=== PATIENT | male | born 1960 | race Caucasian/White ===

== ENCOUNTER 2016-09-01 20:28 | Inpatient (IN) ==
[2016-09-01] MEDS ORDERED: Ondansetron 4 MG/2 ML VIAL IVP ONE ×2 (21:11→23:39)
[2016-09-01] MEDS ORDERED: 0.9 % Sodium Chloride 1,000 ML IVC ONE (21:11)
[2016-09-01] MEDS ORDERED: *HR* HYDROmorphone (PF) 1 MG/ML SYRINGE IVP ONE ×2 (21:11→23:39)
--- NOTE | 2016-09-01 21:18 | Emergency Department Note ---
Disposition Clinical Impression: Acute gastroenteritis, Intractable epigastric abdominal pain Leukocytosis Qualifiers: Leukocytosis type: unspecified Qualified Code(s): D72.829 - Elevated white blood cell count, unspecified Disposition: Admitted As Inpatient Condition: Fair Forms: ED Satisfaction Letter Time of Disposition: 00:35 Abdominal Pain HPI - General Chief Complaint: ED Abdominal Pain Stated Complaint: abd pain, n/v Time Seen by Provider: 09/01/16 20:50 Source: patient, family, EMS Nursing Notes Reviewed: Yes Vital Signs Reviewed: Yes - History of Present Illness HPI Narrative: 55-year-old male transferred here from the [facility] urgent care for evaluation of epigastric abdominal pain which started about 3 PM today. Patient states the pain is constant but comes in waves. When he gets severe he rates the pain a 10 out of 10 and he develops nausea and vomiting and diaphoresis with the pain. At present the pain as a 6 out of 10. He also has developed some diarrhea since the pain started. No fever. No chest pain or shortness of breath. There is been no melena, hematemesis, or hematochezia. No urinary symptoms. No flank pain. Patient has history of a ruptured appendix and ventral hernia repair. He also has a past history of varices but no history of cirrhosis or liver problems. Also past history of surgery for a bleeding gastric ulcer. reports that for about the past month every time the patient eats he was some upper abdominal pain and nausea and get diaphoretic. He does still have his gallbladder. Pt Subjective Complaint: abdominal pain Onset (ago): hour(s) (5) Consistency: constant, Worsening Location: epigastric Pain Severity: severe Pain Scale: 6 Quality: cramping, stabbing, sharp Radiation: none Migration to: no migration Improves with: nothing Worsens with: nothing Associated symptoms: Reports: nausea, vomiting, diarrhea. Denies: fever, chills , constipation, dysuria, hematemesis, hematochezia, melena, hematuria, anorexia , syncope Treatments prior to arrival: other (Patient received nausea medicine at the [facility].) - Related Data Allergies Allergy/AdvReac Type Severity Reaction Status Date / Time morphine AdvReac See Verified 09/01/16 20:31 Comments All systems ED: reviewed and negative except as stated. Constitutional: Denies: fever, chills, weakness Eyes: Denies: eye pain, eye discharge, vision change ENT ED: Denies: ear pain, throat pain Cardiovascular: Denies: chest pain, palpitations, dyspnea on exertion, edema, syncope Respiratory: Denies: cough, dyspnea, wheezes, hemoptysis, stridor, sputum production Gastrointestinal: Reports: abdominal pain, nausea, vomiting, diarrhea. Denies: constipation, hematemesis, melena, hematochezia Genitourinary: Denies: urgency, dysuria, frequency, hematuria Musculoskeletal: Denies: back pain, neck pain Integumentary: Denies: rash, lesions Neurological: Denies: headache, weakness, numbness, paresthesias Psychiatric: Denies: anxiety, depression Endocrine: Denies: fatigue Hematological/Lymphatic: Denies: easy bleeding, easy bruising, lymphadenopathy Allergic/Immunologic: Denies: facial swelling, urticaria, itchy eyes Abdominal Pain PMH - Past Medical History Medical history: Reports: non-contributory Male Surgical History: Reports: appendectomy Psychiatric history: Reports: anxiety - Social History Smoking status: Current every day smoker Alcohol use: Reports: occasionally Drug use: Reports: none Physical Exam - General Limitations: no limitations General appearance: alert, in no apparent distress - Head Head exam: atraumatic, normocephalic, normal inspection - Eye Eye exam: Present: normal appearance, PERRL, EOMI. Absent: scleral icterus, conjunctival injection - ENT ENT exam: normal exam, normal oropharynx, mucous membranes moist, TM's normal bilaterally, normal external ear exam - Neck Neck exam: Present: normal inspection, full ROM, trachea midline. Absent: tenderness, meningismus, lymphadenopathy - Chest Chest inspection: Present: normal inspection, symmetric chest wall rise. Absent : tenderness - Respiratory Respiratory exam: Present: normal lung sounds bilaterally. Absent: respiratory distress, wheezes, stridor, accessory muscle use - Cardiovascular Cardiovascular exam: Present: regular rate, normal rhythm, normal heart sounds - Abdominal Exam Abdominal exam: Present: soft, tenderness (Moderate epigastric tenderness worse on the right side.), normal bowel sounds. Absent: distention, guarding, rebound , rigidity Abdominal tenderness: Present: epigastrium, moderate - Extremities Exam Extremities exam: Present: normal inspection, full ROM. Absent: tenderness, pedal edema - Back Exam Back exam: Present: normal inspection. Absent: CVA tenderness (R), CVA tenderness (L) - Neurological Exam Neurological exam: Present: alert, oriented X3. Absent: motor sensory deficit - Psychiatric Psychiatric exam: Present: normal affect, normal mood - Skin Skin exam: Present: warm, dry, intact, normal color. Absent: cyanosis, diaphoresis Course Course Narrative: 55-year-old male presents from the [facility] with several hours of epigastric abdominal pain associated with nausea vomiting diarrhea. Abdominal pain workup initiated. IV fluids and pain medications. We will CT his abdomen. - Reevaluation(s) Reevaluation #1: Patient reevaluated. He is still complaining of a lot of epigastric abdominal pain and nausea. He is hypertensive and tachycardic. He has had 2 doses of Zofran and Dilaudid. Nothing acute on CT scan. WBC 23. We will consult the hospitalist for admission for acute gastroenteritis and intractable abdominal pain and leukocytosis. Time: 00:00 - Consultations Consultation #1: Consulted the hospitalist, Dr. Basilio. Dr. Basilio accepted admission to the [facility] floor. Time: 00:20 Vital Signs Temperature 97.7 F 09/01/16 20:31 Pulse Rate 99 09/01/16 20:31 Respiratory Rate 18 09/01/16 20:31 Blood Pressure 178/110 09/01/16 20:31 O2 Sat by Pulse Oximetry 97 09/01/16 20:31 Temperature 97.7 F 09/01/16 20:31 Pulse Rate 103 09/01/16 23:59 Respiratory Rate 16 09/01/16 23:59 Blood Pressure 158/107 09/01/16 23:59 O2 Sat by Pulse Oximetry 97 09/01/16 23:59 Oxygen Delivery Oxygen Delivery Room Air Abdominal Pain - MDM Narrative Medical decision making narrative: 55-year-old male presents from the [facility] with several hours of epigastric abdominal pain associated with nausea vomiting diarrhea. Abdominal pain workup initiated. IV fluids and pain medications. We will CT his abdomen. - Lab Data Lab results reviewed: Yes I reviewed the patient's lab results. Result diagrams: 09/01/16 21:30 09/01/16 21:30 Lab Results 09/01/16 09/01/16 09/01/16 Range/Units 21:30 21:30 21:30 WBC 23.6 H (4.3-11.1) K/mcL RBC 5.40 (4.19-5.50) M/mcL Hgb 16.6 (12.9-16.9) g/dL Hct 49.6 (37.5-50.1) % MCV 91.9 (83.0-100.0) fL MCH 30.7 (28.0-33.3) pg MCHC 33.5 (31.6-35.5) g/dL RDW 12.6 (11.5-14.5) % Plt Count 305 (140-400) K/mcL MPV 8.6 L (9.4-12.4) fL Immature Gran % 0.8 (0-4) % Seg Neutrophils % 91.4 % Lymphocytes % 3.2 % Monocytes % 3.9 % Eosinophils % 0.5 % Basophils % 0.2 % Neutrophils # 21.6 H (1.6-8.9) K/mcL Lymphocytes # 0.8 (0.6-4.6) K/mcL Monocytes # 0.9 (0.0-1.3) K/mcL Eosinophils # 0.1 (0.0-0.6) K/mcL Basophils # 0.1 (0.0-0.2) K/mcL Platelet Estimate Normal (Normal) PT 10.9 (9.4-12.1) Seconds INR 1.0 APTT 31.0 (26.0-36.0) Seconds Sodium 139 (136-145) mEq/L Potassium 4.8 H (3.5-4.5) mEq/L Chloride 106 (98-109) mEq/L Carbon Dioxide 24 (19-29) mEq/L BUN 16 (8-26) mg/dL Creatinine 0.95 (0.72-1.25) mg/dL Est GFR ( Amer) > 60 (> 60) Est GFR (Non-Af Amer) > 60 (> 60) BUN/Creatinine Ratio 17 (6-26) Glucose 129 H (70-99) mg/dL Calculated Osmolality 291 (280-300) Lactic Acid (0.5-2.2) mmol/L Calcium 9.5 (8.6-10.8) mg/dL Total Bilirubin 0.4 (0.2-1.2) mg/dL Direct Bilirubin 0.1 (0.0-0.5) mg/dL Indirect Bilirubin 0.3 (0.0-1.2) mg/dL AST 17 (5-34) Units/L ALT 28 (0-55) Units/L Alkaline Phosphatase 85 (38-126) Units/L Troponin I (0-0.03) ng/mL Serum Total Protein 7.7 (6.0-8.3) g/dL Albumin 3.9 (3.5-5.0) g/dL Globulin 3.8 H (2.4-3.5) g/dL Albumin/Globulin Ratio 1.0 L (1.1-2.2) Amylase 70 (25-125) Units/L Lipase 15 (8-78) Units/L Urine Color (Yellow) Urine Clarity (Clear) Urine pH (5.0-8.0) pH Units Ur Specific [place] (1.010-1.025) Urine Protein (Neg-Trace) mg/dL Urine Glucose (UA) (Normal) mg/dL Urine Ketones (Negative) mg/dL Urine Blood (Negative) Urine Nitrite (Negative) Urine Bilirubin (Negative) Urine Urobilinogen (Normal) mg/dL Ur Leukocyte Esterase (Negative) Ur Culture Indicated? (NO) 09/01/16 09/01/16 09/01/16 Range/Units 21:30 21:30 23:12 WBC (4.3-11.1) K/mcL RBC (4.19-5.50) M/mcL Hgb (12.9-16.9) g/dL Hct (37.5-50.1) % MCV (83.0-100.0) fL MCH (28.0-33.3) pg MCHC (31.6-35.5) g/dL RDW (11.5-14.5) % Plt Count (140-400) K/mcL MPV (9.4-12.4) fL Immature Gran % (0-4) % Seg Neutrophils % % Lymphocytes % % Monocytes % % Eosinophils % % Basophils % % Neutrophils # (1.6-8.9) K/mcL Lymphocytes # (0.6-4.6) K/mcL Monocytes # (0.0-1.3) K/mcL Eosinophils # (0.0-0.6) K/mcL Basophils # (0.0-0.2) K/mcL Platelet Estimate (Normal) PT (9.4-12.1) Seconds INR APTT (26.0-36.0) Seconds Sodium (136-145) mEq/L Potassium (3.5-4.5) mEq/L Chloride (98-109) mEq/L Carbon Dioxide (19-29) mEq/L BUN (8-26) mg/dL Creatinine (0.72-1.25) mg/dL Est GFR ( Amer) (> 60) Est GFR (Non-Af Amer) (> 60) BUN/Creatinine Ratio (6-26) Glucose (70-99) mg/dL Calculated Osmolality (280-300) Lactic Acid 1.5 (0.5-2.2) mmol/L Calcium (8.6-10.8) mg/dL Total Bilirubin (0.2-1.2) mg/dL Direct Bilirubin (0.0-0.5) mg/dL Indirect Bilirubin (0.0-1.2) mg/dL AST (5-34) Units/L ALT (0-55) Units/L Alkaline Phosphatase (38-126) Units/L Troponin I 0.00 (0-0.03) ng/mL Serum Total Protein (6.0-8.3) g/dL Albumin (3.5-5.0) g/dL Globulin (2.4-3.5) g/dL Albumin/Globulin Ratio (1.1-2.2) Amylase (25-125) Units/L Lipase (8-78) Units/L Urine Color Yellow (Yellow) Urine Clarity Clear (Clear) Urine pH 6.5 (5.0-8.0) pH Units Ur Specific [place] 1.026 H (1.010-1.025) Urine Protein Negative (Neg-Trace) mg/dL Urine Glucose (UA) Normal (Normal) mg/dL Urine Ketones Negative (Negative) mg/dL Urine Blood Negative (Negative) Urine Nitrite Negative (Negative) Urine Bilirubin Negative (Negative) Urine Urobilinogen Normal (Normal) mg/dL Ur Leukocyte Esterase Negative (Negative) Ur Culture Indicated? NO (NO) - Radiology Data Radiology results reviewed: Yes I reviewed the patient's radiology results. Abdomen/Pelvis CT 09/01/16 22:27 IMPRESSION: 1. No acute findings identified in the abdomen and pelvis. D/ / Bandar Jeronimo MD / Bandar Jeronimo MD Interpreting Provider: Bandar Jeronimo MD - EKG Data EKG attestation: Yes I reviewed and interpreted this EKG. EKG shows normal: sinus rhythm Rate: normal Rhythm: NSR Interpretation: no acute changes
[2016-09-01 21:36] LABS: Basophils # 0.1 K/mcL (0.0-0.2); Basophils % 0.2 %; Eosinophils # 0.1 K/mcL (0.0-0.6); Eosinophils % 0.5 %; Hematocrit 49.6 % (37.5-50.1); Hemoglobin 16.6 g/dL (12.9-16.9); Immature Granulocytes % 0.8 % (0-4); Lymphocytes # 0.8 K/mcL (0.6-4.6); Lymphocytes % 3.2 %; Mean Corpuscular HGB Conc 33.5 g/dL (31.6-35.5); Mean Corpuscular Hemoglobin 30.7 pg (28.0-33.3); Mean Corpuscular Volume 91.9 fL (83.0-100.0); Mean Platelet Volume 8.6 fL (9.4-12.4); Monocytes # 0.9 K/mcL (0.0-1.3); Monocytes % 3.9 %; Neutrophils # 21.6 K/mcL (1.6-8.9); Platelet Count 305 K/mcL (140-400); Red Cell Distribution Width 12.6 % (11.5-14.5); Segmented Neutrophils % 91.4 %
[2016-09-01 21:42] LABS: Prothrombin Time 10.9 Seconds (9.4-12.1)
[2016-09-01 21:52] LABS: Alanine Aminotransferase 28 Units/L (0-55); Albumin 3.9 g/dL (3.5-5.0); Alkaline Phosphatase 85 Units/L (38-126); Amylase 70 Units/L (25-125); Aspartate Amino Transferase 17 Units/L (5-34); BUN/Creatinine Ratio 17 (6-26); Bilirubin,Direct 0.1 mg/dL (0.0-0.5); Bilirubin,Indirect 0.3 mg/dL (0.0-1.2); Bilirubin,Total 0.4 mg/dL (0.2-1.2); Blood Urea Nitrogen 16 mg/dL (8-26); Calcium 9.5 mg/dL (8.6-10.8); Carbon Dioxide 24 mEq/L (19-29); Chloride 106 mEq/L (98-109); Globulin 3.8 g/dL (2.4-3.5); Glucose 129 mg/dL (70-99); Lipase 15 Units/L (8-78); Osmolality,Calculated 291 (280-300); Potassium 4.8 mEq/L (3.5-4.5); Sodium 139 mEq/L (136-145); Total Protein 7.7 g/dL (6.0-8.3); eGFR For African Americans > 60 (> 60); eGFR For Non-African Americans > 60 (> 60)
[2016-09-01 22:05] LABS: Platelet Estimate Normal (Normal)
[2016-09-01 23:25] LABS: Bilirubin,Urine Negative (Negative); Blood,Urine Negative (Negative); Clarity,Urine Clear (Clear); Color,Urine Yellow (Yellow); Glucose,Urine (UA) Normal (Normal); Ketones,Urine Negative (Negative); Leukocyte Esterase,Urine Negative (Negative); Nitrite,Urine Negative (Negative); PH,Urine 6.5 pH Units (5.0-8.0); Protein,Urine Negative (Neg-Trace); Specific Gravity,Urine 1.026 (1.010-1.025); Urobilinogen,Urine Normal (Normal)
[2016-09-02] MEDS ORDERED: 0.9 % Sodium Chloride 1,000 ML IVC ONE (02:12)
[2016-09-02] MEDS ORDERED: Naloxone 0.4 MG/ML INJ IVP PRN (02:12)
[2016-09-02] MEDS ORDERED: Benzonatate 100 MG CAPSULE PO PRN (02:12)
[2016-09-02] MEDS ORDERED: Pantoprazole 80 MG in 0.9 % Sodium Chloride 50 ML IVPB STA (02:12)
[2016-09-02] MEDS ORDERED: *HR* Promethazine 25 MG/ML VIAL IVP PRN (02:12)
[2016-09-02] MEDS ORDERED: Acetaminophen 325 MG TABLET PO PRN (02:12)
[2016-09-02] MEDS ORDERED: *HR* HYDROmorphone (PF) 1 MG/ML SYRINGE IVP PRN (02:12)
[2016-09-02] MEDS ORDERED: *HR* OxyCODONE Immed Rel 5 MG TABLET PO PRN (02:12)
--- NOTE | 2016-09-02 02:32 | Internal Med History&Physical ---
Date of Encounter: 09/02/16 Time of Encounter: 02:00 Assessment and Plan (1) Acute generalized abdominal pain Current visit: Yes Status: Acute . (2) Nausea, vomiting, and diarrhea Current visit: Yes Status: Acute . (3) Systemic inflammatory response syndrome (SIRS) Current visit: Yes Status: Acute . (4) Obesity (BMI 30-39.9) Current visit: Yes Status: Chronic . (5) Postprandial epigastric pain Current visit: Yes Status: Acute . (6) Anxiety disorder Current visit: Yes Status: Chronic . Qualifiers: Anxiety disorder type: generalized anxiety disorder Qualified Code(s): F41.1 - Generalized anxiety disorder (7) Nicotine dependence with nicotine-induced disorder Current visit: Yes Status: Chronic . Qualifiers: Nicotine product type: cigarettes Qualified Code(s): F17.219 - Nicotine dependence, cigarettes, with unspecified nicotine-induced disorders (8) Accelerated hypertension Current visit: Yes Status: Acute . (9) Hypertensive urgency Current visit: Yes Status: Acute .. (10) Acute gastroenteritis Current visit: Yes Status: Acute . (11) Intractable epigastric abdominal pain Current visit: Yes Status: Acute . (12) Anxiety about health Current visit: Yes Status: Acute . (13) Anxiety as acute reaction to gross stress Current visit: Yes Status: Acute . Internal Medicine - H&P: HPI Chief complaint: intractable epigastric pain, nausea, vomiting, diarrhea Admitted From: Hospital to Hospital Transfer (Hospital transfer from the [facility] urgent care center to [facility] emergency center) Plans for Post Hospital Care: Home History of present illness: Mr. Choudhary is a 55 year old male [facility] patient with medical history noteworthy for GERD/esophageal stricture/Schatzki's ring, esophageal varices/duodenal ulcers/UGI bleed, irritable bowel syndrome, osteoarthritis, chronic musculoskeletal/low back pain syndrome, diverticulosis coli, hypertension, dyslipidemia, cholelithiasis, BPH/prostatism, generalized anxiety disorder, depression, morbid obesity, nicotine dependency. The patient was visited and interviewed and examined. The patient is admitted to [facility] via the emergency department as a referral from [facility] urgent care center for evaluation of intractable epigastric/abdominal pain beginning approximately 3 PM the day of admission. Patient arrived via EMS services in the company of family. Reports that he has actually had symptoms of pain waxing and waning initially daily for a month. He describes the pain is constant but comes in waves. When most severe he rates it as a 10/10. This is associated with intractable nausea and repetitive vomiting and profuse diaphoresis. At the time of presentation to the ER he rates it as a 5-6/10 severity. Symptoms also include episodes of this stool. He numbers he says 2- 3 per day. They can be postprandial. His abdominal pain nausea and vomiting often is postprandial. No specific foods which are outstanding and causing symptoms. Also present nothing seems to lessen them except vomiting or bowel movement. Focuses most severe pain is epigastric described as cramping stabbing and sharp. He denies any overt chest pain exertional exacerbation of symptoms cecal or presyncopal complaints or respiratory complaints dyspnea at rest cough sputum production. Denies any epistaxis, hemoptysis hematemesis melena bright red blood per rectum. Abdominal pains have awakened him from sleep associated with diaphoresis and nausea. Associated fevers chills with these symptoms. Denies any association with a urinary tract or flank pain. Pain is predominantly epigastric without radiation. The patient has undergone intra-abdominal procedures including ruptured appendix repair large hernia repair. History is significant for gastroesophageal reflux disease associated at times with dysphagia delineated to be secondary to esophageal strictures and Schatzki's ring. His also had upper gastrointestinal bleeding event secondary to duodenal ulcer/gastric ulcer and esophageal varices without associated history of cirrhotic liver disease per patient's report and noted in [facility] record.. Findings in the ED: Temperature 97.7 pulse 99-103 respirations 16-18 BP 158-178/107-110 O2 saturation 97% room air. WBC 23.6 hemoglobin 16.6 platelets 305,000. Differential shows a increase in neutrophils. MPV 8.6. PT 10.9 INR 1 PTT 31. Metabolic panel finds potassium 4.8. Glucose 129 osmolality 291. BUN 16 creatinine 0.95. Hepatic function normal. Amylase 70 lipase 15. Lactic acid 1.5. Troponin 0.00. Urinalysis negative. CT abdomen/ pelvis IV contrast demonstrates no acute intra-abdominal or pelvic findings. Small hiatal hernia. No focal consolidation or pleural effusion of the lower chest. Mild fatty infiltration of the liver. Spleen pancreas adrenal glands within normal limits. Unremarkable gallbladder. No evidence of focal enterocolitis. No bowel obstruction. No free air or fluid within the abdomen. The appendix is not well seen. No inflammatory changes in the right lower quadrant. No acute findings in the pelvis. No evidence of obstructive uropathy. No evidence of aortic aneurysm. Status post ventral hernia repair. No acute findings of bone or soft tissue. Chronic/congenital bilateral L5 pars defects. EKG shows sinus tachycardia (101) pattern consistent with pulmonary disease with low voltage in frontal and precordial leads. Poor R wave progression V1 to V2 V3 and V4 incision. Nonspecific ST-T wave changes. Q- wave in lead 3 and aVF. Left axis deviation. Baseline artifact. Preliminary impressions suggest acute gastroenteritis with nausea vomiting and epigastric pain as well as associated episodic watery diarrhea versus loose semi-formed stool. Patient carries a history of irritable bowel syndrome as well as a history of gastritis- duodenitis. Presentation is significant for this combination of events. The patient acknowledges significant at times overwhelming personal stressors and increased anxiety and worry. Worry about his health especially at this time focuses on his abdomen which is been a prime source of the concern over the years. I will just most family members including his requiring interventions for gallbladder disease is his concern at this time. The episodic nature of symptoms occurring with meals associated with nausea vomiting and profuse diaphoresis is concerning. Enlight of his presentation with accelerated hypertensive urgency rule out for possible ACS/UA given his multiple positive risk factors is warranted. Given the dynamic cardiovascular events and the gastrointestinal symptoms will rule out of endocrinopathies such as pheochromocytoma, carcinoid, insulinoma, evolving diabetes mellitus with episodic acute hypoglycemias, etc., to be considered. Systemic inflammatory response syndrome criteria present at the time of admission. There is no discrete evidence to suggest sepsis or focus of infection at present. COPD exacerbation is noted at exam in long-time smoker. Radiographic and cardiac findings otherwise essentially benign. Given patient' s presenting concerns his clinical findings and his past history he is at risk for further acute clinical decline and morbidity. Workup and treatment will progress comprehensively. Cumulative laboratory and radiographic data base was reviewed, considered and discussed. Pertinent ancillary medical records including [facility], [facility] and [facility] documentation, when available, was reviewed and considered. Given the patient's presenting concerns, past medical history, clinical findings and symptoms, he is admitted at this time will undergo further evaluation and disposition. Orders were written as per the computerized physician border machine operator system.......................................................................... .................... Consultative opinions will be sought as clinical circumstances justify. Initial consultative request has been submitted to gastroenterology. Pain management needs will be addressed. Laboratory and radiographic data base will be updated as appropriate. Studies include: cardiac injury panel, BNP, metabolic and hematologic panel, magnesium, phosphorus, ionized calcium, thyroid panel, lipid profile, A1c, C-peptide, CRP, sedimentation rate, amylase, lipase, random urine metanephrine and catecholamines, random urine 5 HIAA, urinalysis, blood gas, lactic acid, serologies, etc. Precautions: Aspiration, fall, delirium protocol/surveillance initiated. Telemetry with continuous hemodynamic monitoring and pulse oximetry initiated. Empiric antibody coverage: Intravenous Rocephin and azithromycin pending culture data. Special studies: CT abdomen/pelvis, MRCP, HIDA scan , chest x-ray, telemetry, EKG, echocardiogram. Pulmonary toilet: Incentive spirometry, aerosol bronchodilator, mucolytic, antitussive, supplemental oxygen. Corticosteroid therapy. CPAP/BiPAP supplemental oxygen delivery when necessary. Aerosol Mucomyst therapy when necessary. Fluid and electrolyte repletion efforts will proceed. Careful attention to fluid balance and renal recovery will be emphasized. Avoidance of nephrotoxic exposure and adverse drug drug interaction in the setting of impaired renal function will be monitored closely. Acute coronary syndrome protocol/surveillance initiated. DVT and PUD prophylaxis initiated: PPI therapy, intermittent pneumatic cuffs. Subcutaneous heparin/lovenox. Early ambulation will be encouraged. Immunization updates recommended. Influenza and pneumococcal vaccinations as part of ongoing preventative healthcare recommendations strongly recommended. Smoking cessation counseling briefly addressed. Patient accepts nicotine substitution during this admission. Advanced care directive discussion briefly addressed. Patient does not declare any healthcare restrictions at this time. Cardiovascular risk appraisal and cardiovascular risk reduction efforts will be emphasized. Physical and occupational therapy may be consulted to evaluate/assess patient's functional capacity and progress mobility if circumstances justify. Outpatient medication schedules will be reviewed confirmed and facilitated as appropriate. Reconciliation of home treatments including adjustments, substitutions and reintroduction into the treatment regimen will address necessary maintenance therapies for chronic pre-existing medical conditions. Plan of care has been reviewed and discussed in detail with the patient. Questions addressed. Hospital course is dependent on clinical findings, treatment response and potential consultative interventions. Patient is at risk for further acute clinical decline and morbidity due to his presenting chief complaints, clinical findings and comorbidities. Condition is serious. Prognosis is cautiously optimistic. CODE STATUS is full. Past Med Surg Social Fam HX - Past Medical History Source: old records reviewed Medical history: arthritis (Chronic back pain. Jaw pain. The pain. The pain.) , COPD, fibromyalgia (Plantar fasciitis/fibromatosis/foot pain. Knee pain. Wrist and hand pain/ numbness/carpal tunnel dysfunction. Jaw pain/TMJ dysfunction), GERD (Schatzki's ring. Hiatal hernia. Esophageal varices. Gastritis. Gastric ulcer. Esophageal stricture.), GI bleed (Duodenal ulcer with hemorrhage.), hyperlipidemia, hypertension, kidney stones, osteoporosis, renal disease (BPH with prostatism.), other (Irritable bowel syndrome. Diverticulosis coli.) Psychiatric history: anxiety, depression, other - Past Surgical History Surgical History: appendectomy, herniorrhaphy, other (EGD colonoscopy. Ventral hernia repair.) - Social History Smoking Status: Current every day smoker Packs per day: 1/2 to 1 ppd Smokeless Tobacco Status: No Alcohol use: occasionally Drug use: none Occupational status: other Current living situation: With Family Activity Level: Independent ambulation, Mostly sedentary Recent Out of Country Travel Within the Last 8 Weeks: No Exposure or Possible Exposure to Illness During Travel: No Internal Medicine - H&P: Meds Methadone 10 mg PO Q12HR 09/02/16 [History] Allergies morphine Adverse Reaction (Verified 09/01/16 20:31) See Comments states that med is ineffective All Systems PM: A 10-system review of systems was performed and is negative for pertinent findings except as documented above in the HPI. - Constitutional Constitutional: as per HPI, fatigue, malaise, other, no chills, no fever(s), no night sweats - EENT Eyes: as per HPI, no change in vision, no discharge, no pain, no photophobia Ears: as per HPI, no ear discharge, no ear pain, no tinnitus Nose, mouth and throat: as per HPI, no dysphagia, no nasal discharge, no neck pain, no sore throat - Cardiovascular Cardiovascular ROS IM: as per HPI, diaphoresis, dyspnea on exertion, no chest pain, no dyspnea, no lightheadedness, no palpitations, no syncope - Respiratory Respiratory: as per HPI, no cough, no dyspnea, no hemoptysis, no wheezing, no excessive phlegm production - Gastrointestinal Gastrointestinal: as per HPI, abdominal pain, bloating, change in bowel habits, cramping, diarrhea, loose stools, other, no hematemesis, no hematochezia, no melena, no nausea, no vomiting - Genitourinary Genitourinary ROS male: as per HPI, no difficulty urinating, no dysuria, no hematuria - Musculoskeletal Musculoskeletal ROS IM: as per HPI, no numbness, no tingling - Integumentary Integumentary IM: as per HPI, no rash, no unusual bruising - Neurological Neurological ROS: as per HPI, no confusion, no convulsions, no focal weakness, no numbness, no tingling, no tremor(s) - Psychiatric Psychiatric: as per HPI - Endocrine Endocrine IM: as per HPI - Hematologic/Lymphatic Hematologic/Lymphatic: as per HPI, no easy bruising - Allergic/Immunologic Allergic/Immunologic: as per HPI - Constitutional Vitals: Temp Pulse Resp BP Pulse Ox 98.0 F 95 15 138/80 95 09/02/16 01:42 09/02/16 01:42 09/02/16 01:42 09/02/16 01:42 09/02/16 02:02 General appearance: Present: disheveled, mild distress, A&O X 3, morbidly obese , answers questions appropriately - Head Head exam: Present: atraumatic, normocephalic - Eye Eye exam: Present: EOMI, PERRL, conjuntiva pink, sclera anicteric Pupils: Present: normal accommodation, PERRL - ENT ENT exam: Present: mucous membranes moist, normal external ear exam, normal oropharynx - Neck Neck exam general surgery: Present: full ROM, supple, trachea midline. Absent: lymphadenopathy, tenderness, nuchal rigidity - Respiratory Respiratory exam: Present: decreased breath sounds, CTAB. Absent: accessory muscle use, rales, rhonchi, wheezes - Cardiovascular Cardiovascular exam: Present: distant heart sounds, RRR, +S1, +S2, tachycardia. Absent: diastolic murmur, gallop, rubs, systolic murmur - GI/Abdominal GI/Abdominal exam: Present: distended, hyperactive bowel sounds, soft, tenderness, no peritoneal signs. Absent: hernia, mass, rebound - Extremities Exam Extremities exam: Present: full ROM, warm, radial pulses palpable and symetrical. Absent: calf tenderness, cyanotic, pedal edema - Neurological Exam Neurological exam: Present: alert, CN II-XII intact, oriented X3, no focal deficits. Absent: pronater drift, facial droop, speech deficit - Psychiatric Psychiatric exam: Present: anxious, depressed, normal affect - Expanded Psychiatric Exam Focused psych exam: Present: restlessness - Skin Skin exam: Present: dry, intact, warm. Absent: petechiae, rash, urticaria, vesicles Internal Med - H&P Results - Labs CBC & Chem 7: 09/02/16 03:23 09/02/16 03:23 - Impressions Vital Signs Temp Pulse Resp BP Pulse Ox 09/02/16 02:02 95 09/02/16 01:42 98.0 F 95 15 138/80 95 09/02/16 01:21 18 133/65 09/01/16 23:59 103 16 158/107 97 09/01/16 23:01 96 12 151/92 95 09/01/16 21:07 103 16 123/84 95 09/01/16 20:31 97.7 F 99 18 178/110 97 Intake and Output 09/01/16 09/01/16 09/02/16 15:59 23:59 07:59 Other: Weight 97.522 kg 98 kg Patient Weight 09/02/16 23:59 Weight 98 kg Short CBC 09/01/16 Range/Units 21:30 WBC 23.6 H (4.3-11.1) K/mcL Hgb 16.6 (12.9-16.9) g/dL Hct 49.6 (37.5-50.1) % Plt Count 305 (140-400) K/mcL Neutrophils # 21.6 H (1.6-8.9) K/mcL BMP 09/01/16 Range/Units 21:30 Sodium 139 (136-145) mEq/L Potassium 4.8 H (3.5-4.5) mEq/L Chloride 106 (98-109) mEq/L Carbon Dioxide 24 (19-29) mEq/L BUN 16 (8-26) mg/dL Creatinine 0.95 (0.72-1.25) mg/dL Glucose 129 H (70-99) mg/dL Calcium 9.5 (8.6-10.8) mg/dL Cardiac Enzymes 09/01/16 Range/Units 21:30 Troponin I 0.00 (0-0.03) ng/mL Liver Function 09/01/16 Range/Units 21:30 Total Bilirubin 0.4 (0.2-1.2) mg/dL Direct Bilirubin 0.1 (0.0-0.5) mg/dL AST 17 (5-34) Units/L ALT 28 (0-55) Units/L Alkaline Phosphatase 85 (38-126) Units/L Albumin 3.9 (3.5-5.0) g/dL Urine 09/01/16 Range/Units 23:12 Urine Color Yellow (Yellow) Urine Clarity Clear (Clear) Urine pH 6.5 (5.0-8.0) pH Units Ur Specific [place] 1.026 H (1.010-1.025) Urine Protein Negative (Neg-Trace) mg/dL Urine Glucose (UA) Normal (Normal) mg/dL Abnormal lab results WBC 23.6 K/mcL (4.3-11.1) H 09/01/16 21:30 MPV 8.6 fL (9.4-12.4) L 09/01/16 21:30 Neutrophils # 21.6 K/mcL (1.6-8.9) H 09/01/16 21:30 Potassium 4.8 mEq/L (3.5-4.5) H 09/01/16 21:30 Glucose 129 mg/dL (70-99) H 09/01/16 21:30 Globulin 3.8 g/dL (2.4-3.5) H 09/01/16 21:30 Albumin/Globulin Ratio 1.0 (1.1-2.2) L 09/01/16 21:30 Ur Specific [place] 1.026 (1.010-1.025) H 09/01/16 23:12 Allergies Allergy/AdvReac Type Severity Reaction Status Date / Time morphine AdvReac See Verified 09/01/16 20:31 Comments Laboratory Results WBC 23.6 K/mcL (4.3-11.1) H 09/01/16 21:30 RBC 5.40 M/mcL (4.19-5.50) 09/01/16 21:30 Hgb 16.6 g/dL (12.9-16.9) 09/01/16 21:30 Hct 49.6 % (37.5-50.1) 09/01/16 21:30 MCV 91.9 fL (83.0-100.0) 09/01/16 21:30 MCH 30.7 pg (28.0-33.3) 09/01/16 21:30 MCHC 33.5 g/dL (31.6-35.5) 09/01/16 21:30 RDW 12.6 % (11.5-14.5) 09/01/16 21:30 Plt Count 305 K/mcL (140-400) 09/01/16 21:30 MPV 8.6 fL (9.4-12.4) L 09/01/16 21:30 Immature Gran % 0.8 % (0-4) 09/01/16 21:30 Seg Neutrophils % 91.4 % 09/01/16 21:30 Lymphocytes % 3.2 % 09/01/16 21:30 Monocytes % 3.9 % 09/01/16 21:30 Eosinophils % 0.5 % 09/01/16 21:30 Basophils % 0.2 % 09/01/16 21:30 Neutrophils # 21.6 K/mcL (1.6-8.9) H 09/01/16 21:30 Lymphocytes # 0.8 K/mcL (0.6-4.6) 09/01/16 21:30 Monocytes # 0.9 K/mcL (0.0-1.3) 09/01/16 21:30 Eosinophils # 0.1 K/mcL (0.0-0.6) 09/01/16 21:30 Basophils # 0.1 K/mcL (0.0-0.2) 09/01/16 21:30 Platelet Estimate Normal (Normal) 09/01/16 21:30 PT 10.9 Seconds (9.4-12.1) 09/01/16 21:30 INR 1.0 09/01/16 21:30 APTT 31.0 Seconds (26.0-36.0) 09/01/16 21:30 Sodium 139 mEq/L (136-145) 09/01/16 21:30 Potassium 4.8 mEq/L (3.5-4.5) H 09/01/16 21:30 Chloride 106 mEq/L (98-109) 09/01/16 21:30 Carbon Dioxide 24 mEq/L (19-29) 09/01/16 21:30 BUN 16 mg/dL (8-26) 09/01/16 21:30 Creatinine 0.95 mg/dL (0.72-1.25) 09/01/16 21:30 Est GFR ( Amer) > 60 (> 60) 09/01/16 21:30 Est GFR (Non-Af Amer) > 60 (> 60) 09/01/16 21:30 BUN/Creatinine Ratio 17 (6-26) 09/01/16 21:30 Glucose 129 mg/dL (70-99) H 09/01/16 21:30 Calculated Osmolality 291 (280-300) 09/01/16 21:30 Lactic Acid 1.5 mmol/L (0.5-2.2) 09/01/16 21:30 Calcium 9.5 mg/dL (8.6-10.8) 09/01/16 21:30 Total Bilirubin 0.4 mg/dL (0.2-1.2) 09/01/16 21:30 Direct Bilirubin 0.1 mg/dL (0.0-0.5) 09/01/16 21:30 Indirect Bilirubin 0.3 mg/dL (0.0-1.2) 09/01/16 21:30 AST 17 Units/L (5-34) 09/01/16 21:30 ALT 28 Units/L (0-55) 09/01/16 21:30 Alkaline Phosphatase 85 Units/L (38-126) 09/01/16 21:30 Troponin I 0.00 ng/mL (0-0.03) 09/01/16 21:30 Serum Total Protein 7.7 g/dL (6.0-8.3) 09/01/16 21:30 Albumin 3.9 g/dL (3.5-5.0) 09/01/16 21:30 Globulin 3.8 g/dL (2.4-3.5) H 09/01/16 21:30 Albumin/Globulin Ratio 1.0 (1.1-2.2) L 09/01/16 21:30 Amylase 70 Units/L (25-125) 09/01/16 21:30 Lipase 15 Units/L (8-78) 09/01/16 21:30 Urine Color Yellow (Yellow) 09/01/16 23:12 Urine Clarity Clear (Clear) 09/01/16 23:12 Urine pH 6.5 pH Units (5.0-8.0) 09/01/16 23:12 Ur Specific [place] 1.026 (1.010-1.025) H 09/01/16 23:12 Urine Protein Negative mg/dL (Neg-Trace) 09/01/16 23:12 Urine Glucose (UA) Normal mg/dL (Normal) 09/01/16 23:12 Urine Ketones Negative mg/dL (Negative) 09/01/16 23:12 Urine Blood Negative (Negative) 09/01/16 23:12 Urine Nitrite Negative (Negative) 09/01/16 23:12 Urine Bilirubin Negative (Negative) 09/01/16 23:12 Urine Urobilinogen Normal mg/dL (Normal) 09/01/16 23:12 Ur Leukocyte Esterase Negative (Negative) 09/01/16 23:12 Ur Culture Indicated? NO (NO) 09/01/16 23:12 Impressions Abdomen/Pelvis CT 09/01/16 22:27 IMPRESSION: 1. No acute findings identified in the abdomen and pelvis. D/ / Bandar Jeronimo MD / Bandar Jeronimo MD Interpreting Provider: Bandar Jeronimo MD
[2016-09-02] MEDS ORDERED: *HR* LORazepam 2 MG/ML VIAL IVP ONE (03:00)
[2016-09-02] MEDS ORDERED: diazePAM 5 MG TABLET PO PRN (03:01)
[2016-09-02 04:17] LABS: Hematocrit 47.3 % (37.5-50.1); Hemoglobin 16.1 g/dL (12.9-16.9); Mean Corpuscular Hemoglobin 31.4 pg (28.0-33.3); Mean Corpuscular Volume 92.2 fL (83.0-100.0); Mean Platelet Volume 9.2 fL (9.4-12.4); Platelet Count 304 K/mcL (140-400); Red Blood Count 5.13 M/mcL (4.19-5.50); Red Cell Distribution Width 12.6 % (11.5-14.5)
[2016-09-02 04:24] LABS: Hemoglobin A1C 5.7 %
[2016-09-02 04:31] LABS: Amylase 59 Units/L (25-125); BUN/Creatinine Ratio 16 (6-26); Blood Urea Nitrogen 16 mg/dL (8-26); Calcium 9.1 mg/dL (8.6-10.8); Carbon Dioxide 25 mEq/L (19-29); Chloride 105 mEq/L (98-109); Chol/HDL Ratio 4.9 (0-4.9); Cholesterol 267 mg/dL (< 200); Glucose 142 mg/dL (70-99); HDL Cholesterol 55 mg/dL (40-59); LDL Cholesterol,Calculated 184 mg/dL (0-99); Osmolality,Calculated 288 (280-300); Phosphorous 3.1 mg/dL (2.3-4.7); Potassium 4.1 mEq/L (3.5-4.5); Sodium 137 mEq/L (136-145); Triglycerides 140 mg/dL (< 150); eGFR For African Americans > 60 (> 60); eGFR For Non-African Americans > 60 (> 60)
[2016-09-02] MEDS: Pantoprazole 40 MG in 0.9 % Sodium Chloride Mini Bag 100 ML IVC SCH ×3 (04:39→18:46)
[2016-09-02] MEDS: 0.9 % Sodium Chloride 1,000 ML IVC SCH ×2 (04:40→19:51)
[2016-09-02 04:51] LABS: Thyroid Stimulating Hormone 0.808 mcIU/mL (0.350-4.840)
[2016-09-02] MEDS: *HR* Methadone 10 MG TABLET PO SCH ×2 (05:00→18:05)
[2016-09-02] MEDS ORDERED: Albuterol 2.5 MG/3 ML NEBULIZER IH PRN (05:34)
[2016-09-02] MEDS: Azithromycin 500 MG in D5% in Water 250 ML IVPB SCH (06:40)
[2016-09-02] MEDS ORDERED: Ondansetron 4 MG/2 ML VIAL IVP PRN (07:57)
[2016-09-02] MEDS ORDERED: MetroNIDAZOLE 500 MG/100 ML 500 MG/100 ML BAG IVPB SCH (08:00)
--- NOTE | 2016-09-02 09:08 | ECHO - Doppler Report ---
Echocardiogram Name: Leandro Choudhary Date of Study: 09/02/2016 Date: 1960 Ht: 69.0 in Medical Record#: [id number] Age: 55 Wt: 214.0 lb Gender: Male BSA: 2.13 Order #: [id number] Location: [facility] Room #: 3A41 Reading Physician: Roseann Gomez DO Marine Meteorologist: NANDO ValdezT, [facility] Ordering Physician: Guanakito Basilio MD Primary Physician: None Indications: Hypertension Impressions: LVEF 60%. Normal left ventricular size and systolic function. There is evidence of mild diastolic dysfunction of the left ventricle. Normal right ventricular size and function. No significant valvular dysfunction. No pulmonary hypertension. Left Ventricular Wall Motion: Rest Echo Findings All wall segments showed normal motion. Findings: Study Quality * Technically adequate exam. ECG Findings * Normal sinus rhythm. Left Ventricle * LVEF 60%. * Normal LV chamber size, wall thickness and function. * Mild left ventricular diastolic dysfunction. Left Atrium * Normal left atrial size. Aortic Valve * No aortic regurgitation. * Trileaflet aortic valve. * Normal aortic valve structure. * No aortic stenosis. Tricuspid Valve * Tricuspid valve not well visualized. * No tricuspid regurgitation. Pulmonic Valve * Pulmonic valve is not well visualized. * No pulmonic stenosis. * No pulmonic regurgitation. Pulmonary Artery * Pulmonary artery not well visualized. Right Ventricle * Normal right ventricular structure and function. Right Atrium * Normal right atrial size. Mitral Valve * No mitral stenosis. * Trace mitral regurgitation. Interatrial Septum * No evidence of PFO by color Doppler. IVC * The IVC is not well evaluated. Pericardium * There is no pericardial effusion present. Aorta * Normally sized aortic root. History Hypertension Measurements: BP: 142/ 79 2D Normal Values IVSd: 1.20 cm 0.6 - 1.0 cm LVIDd: 5.00 cm 3.7 - 5.6 cm LVPWd: 1.20 cm 0.6 - 1.1 cm LVIDs: 2.80 cm 1.5 - 3.6 cm AO: 2.70 cm < 4.0 cm LA: 3.30 cm 2.0 - 4.0cm %FS: 44.00 cm >25 % LA volume: 28 Mitral Valve Peak E:.83 m/sec Peak A:.96 m/sec E/A Ratio:0.9 Tricuspid Valve TV Regurg Peak Grad: 18.00mmHg TV Regurg Peak Rudolph: 2.12m/sec Updated by Roseann Gomez on 09/02/2016 9:02:56 AM electronically signed on 09/02/2016 9:04:16 AM with status of Final Wall Motion [place]: 1=Normal, 2=Hypokinesis, 3=Akinesis, 4=Dyskinesis, 5=Aneurysmal, 6=Hyperkinetic, X=Not Visualized (Blank)=Missing
[2016-09-02] MEDS: Ipratropium/Albuterol Neb 3 ML IH SCH ×3 (10:19→22:15)
[2016-09-02 11:06] LABS: Amphetamine Screen,Urine Negative ng/mL (Cutoff=1000); Barbiturate Screen,Urine Negative ng/mL (Cutoff=200); Benzodiazepines Screen,Urine Negative ng/mL (Cutoff=200); Cannabinoid Screen,Urine Negative ng/mL (Cutoff = 50); Cocaine Screen,Urine Negative ng/mL (Cutoff= 300); Opiate Screen,Urine Negative ng/mL (Cutoff=300); Phencyclidine Screen,Urine Negative ng/mL (Cutoff=25)
[2016-09-02] MEDS: Nicotine 21 MG PATCH.TD24 TD SCH (11:45)
[2016-09-02] MEDS: Sucralfate 1 GM TABLET PO SCH ×4 (11:46→20:43)
[2016-09-02] MEDS: MetroNIDAZOLE 500 MG/100 ML 500 MG/100 ML BAG IVPB SCH ×2 (11:58→19:51)
--- NOTE | 2016-09-02 15:07 | Internal Med Progress Note ---
Date of Encounter: 09/02/16 Time of Encounter: 15:04 - Assessment and plan (1) Acute gastroenteritis Current Visit: Yes Status: Acute Assessment and plan: Clinically improving. No longer having episodes of vomiting. Tolerating clear liquid diet well. We will advance diet as tolerated. Leukocytosis still present. We will continue antibiotics at this time. MRCP and HIDA scan reviewed. No acute findings. (2) Acute generalized abdominal pain Current Visit: Yes Status: Acute (3) Accelerated hypertension Current Visit: Yes Status: Resolved (4) Leukocytosis Current Visit: Yes Status: Acute Qualifiers: Leukocytosis type: leukemoid reaction Qualified Code(s): D72.823 - Leukemoid reaction (5) Anxiety disorder Current Visit: Yes Status: Chronic Qualifiers: Anxiety disorder type: generalized anxiety disorder Qualified Code(s): F41.1 - Generalized anxiety disorder (6) Nicotine dependence with nicotine-induced disorder Current Visit: Yes Status: Chronic Qualifiers: Nicotine product type: cigarettes Qualified Code(s): F17.219 - Nicotine dependence, cigarettes, with unspecified nicotine-induced disorders (7) Systemic inflammatory response syndrome (SIRS) Current Visit: Yes Status: Acute - Subjective Interval history: Eating better today. No abdominal pain. Nausea has been controlled with medications that he is receiving here. Having bowel movements. - Constitutional Vitals: Temp Pulse Resp BP Pulse Ox 98.1 F 79 18 155/88 92 L 09/02/16 11:29 09/02/16 11:29 09/02/16 11:29 09/02/16 11:29 09/02/16 11:29 General appearance: Present: disheveled, mild distress, A&O X 3, morbidly obese , answers questions appropriately - Respiratory Respiratory exam: Present: CTAB. Absent: accessory muscle use, rales, rhonchi, wheezes - Cardiovascular Cardiovascular exam: Present: RRR, +S1, +S2. Absent: diastolic murmur, gallop, rubs, systolic murmur - GI/Abdominal GI/Abdominal exam: Present: normal bowel sounds, soft, no peritoneal signs. Absent: distended, tenderness Internal Medicine: Result - Labs CBC & Chem 7: 09/02/16 03:23 09/02/16 03:23 Labs: Short CBC 09/02/16 Range/Units 03:23 WBC 22.2 H (4.3-11.1) K/mcL Hgb 16.1 (12.9-16.9) g/dL Hct 47.3 (37.5-50.1) % Plt Count 304 (140-400) K/mcL BMP 09/02/16 03:23 Sodium 137 Potassium 4.1 Chloride 105 Carbon Dioxide 25 BUN 16 Creatinine 0.97 Glucose 142 H Calcium 9.1 - ABG Interpretation ABG results: PT/INR, D-dimer PT 10.9 Seconds (9.4-12.1) 09/01/16 21:30 - Impressions Impressions Chest/Abdomen X-ray 09/02/16 05:38 IMPRESSION: No acute abdominal radiographic abnormality. Left nephrolithiasis. D/ / Afua Martínez Cha, MD / Afua Martínez Cha, MD Interpreting Provider: Afua Martínez Cha, MD Liver Scan Nuclear Medicine 09/02/16 10:00 IMPRESSION: Normal radionuclide distribution within the biliary system. Gallbladder ejection fraction, 23%. D/ / Gilmer Gonzalez MD / Gilmer Gonzalez MD Interpreting Provider: Gilmer Gonzalez MD Consult Discharge Plan - Plan [facility]: [facility] Provider[facility] - - Attending Attestation This document has been at least partially created by [employer] recognition technology by Dr. Patterson. Errors in grammar, wording or other phrases may exist. If errors are found after the documentation is signed, they will be addressed individually in the addendum section of this document when appropriate.
[2016-09-02 16:05] LABS: Adenovirus Not Detected (Not Detect); Bordetella Pertussis Not Detected (Not Detect); Chlamydophila pneumoniae Not Detected (Not Detect); Coronavirus 229E Not Detected (Not Detect); Coronavirus HKU1 Not Detected (Not Detect); Coronavirus NL63 Not Detected (Not Detect); Coronavirus OC43 Not Detected (Not Detect); Human Metapneumovirus Not Detected (Not Detect); Human Rhinovirus/Enterovirus Not Detected (Not Detect); Influenza A Subtype 2009 H1 Not Detected (Not Detect); Influenza A Untypeable Not Detected (Not Detect); Influenza B Not Detected (Not Detect); Mycoplasma pneumoniae Not Detected (Not Detect); Parainfluenza Virus 1 Not Detected (Not Detect); Parainfluenza Virus 2 Not Detected (Not Detect); Parainfluenza Virus 3 Not Detected (Not Detect); Parainfluenza Virus 4 Not Detected (Not Detect); Respiratory Syncytial Virus Not Detected (Not Detect)
[2016-09-03] MEDS: Pantoprazole 40 MG in 0.9 % Sodium Chloride Mini Bag 100 ML IVC SCH ×2 (00:01→05:12)
[2016-09-03 03:55] LABS: Basophils % 0.2 %; Eosinophils # 0.3 K/mcL (0.0-0.6); Eosinophils % 3.2 %; Hematocrit 41.3 % (37.5-50.1); Immature Granulocytes % 0.5 % (0-4); Immature Platelets 2.5 % (1.1-6.1); Lymphocytes % 24.4 %; Mean Corpuscular HGB Conc 33.2 g/dL (31.6-35.5); Mean Corpuscular Hemoglobin 31.2 pg (28.0-33.3); Mean Corpuscular Volume 94.1 fL (83.0-100.0); Monocytes % 12.8 %; Neutrophils # 4.8 K/mcL (1.6-8.9); Platelet Count 268 K/mcL (140-400); Red Blood Count 4.39 M/mcL (4.19-5.50); Red Cell Distribution Width 12.9 % (11.5-14.5); Segmented Neutrophils % 58.9 %
[2016-09-03 04:00] LABS: Hemoglobin 13.7 g/dL (12.9-16.9)
[2016-09-03] MEDS: MetroNIDAZOLE 500 MG/100 ML 500 MG/100 ML BAG IVPB SCH (04:05)
[2016-09-03] MEDS: 0.9 % Sodium Chloride 1,000 ML IVC SCH (04:05)
[2016-09-03 04:10] LABS: BUN/Creatinine Ratio 11 (6-26); Blood Urea Nitrogen 9 mg/dL (8-26); Calcium 8.4 mg/dL (8.6-10.8); Carbon Dioxide 23 mEq/L (19-29); Chloride 110 mEq/L (98-109); Glucose 90 mg/dL (70-99); Osmolality,Calculated 286 (280-300); Sodium 139 mEq/L (136-145); eGFR For African Americans > 60 (> 60); eGFR For Non-African Americans > 60 (> 60)
[2016-09-03] MEDS: Ipratropium/Albuterol Neb 3 ML IH SCH ×2 (04:32→10:48)
[2016-09-03] MEDS: *HR* Methadone 10 MG TABLET PO SCH (05:13)
[2016-09-03] MEDS: Azithromycin 500 MG in D5% in Water 250 ML IVPB SCH (05:25)
[2016-09-03] MEDS: Nicotine 21 MG PATCH.TD24 TD SCH (07:10)
[2016-09-03] MEDS: Sucralfate 1 GM TABLET PO SCH ×2 (07:10→11:04)
[2016-09-03 10:36] VITALS: BP 143/90
--- NOTE | 2016-09-03 11:14 | Discharge Summary ---
Date of Encounter: 09/03/16 Time of Encounter: 10:00 - Discharge Diagnosis (1) Acute gastroenteritis Priority: Primary Status: Acute (2) Acute generalized abdominal pain Priority: Secondary Status: Acute (3) Accelerated hypertension Priority: Secondary Status: Resolved (4) Leukocytosis Priority: Secondary Status: Resolved Qualifiers: Leukocytosis type: leukemoid reaction Qualified Code(s): D72.823 - Leukemoid reaction (5) Anxiety disorder Priority: Secondary Status: Chronic Qualifiers: Anxiety disorder type: generalized anxiety disorder Qualified Code(s): F41.1 - Generalized anxiety disorder (6) Nicotine dependence with nicotine-induced disorder Priority: Secondary Status: Chronic Qualifiers: Nicotine product type: cigarettes Qualified Code(s): F17.219 - Nicotine dependence, cigarettes, with unspecified nicotine-induced disorders (7) Systemic inflammatory response syndrome (SIRS) Priority: Secondary Status: Resolved - Discharge Medications Prescriptions: Metoclopramide [Reglan] 10 mg PO Q6HR PRN #30 tablet PRN Reason: Nausea And Vomiting Omeprazole [PriLOSEC] 40 mg PO DAILY #30 cap Home Medications: Methadone 10 mg PO BID 09/02/16 [History] Multivitamin [Multi-Day Vitamins] 1 tab PO DAILY 09/02/16 [History] Terazosin HCl 4 mg PO HS 09/02/16 [History] Metoclopramide [Reglan] 10 mg PO Q6HR PRN #30 tablet 09/03/16 [Rx] Omeprazole [PriLOSEC] 40 mg PO DAILY #30 cap 09/03/16 [Rx] Allergies/Adverse Reactions: Allergies gabapentin Allergy (Unknown, Verified 09/02/16 12:15) See Comments UNSURE OF REACTION- LISTED ON [facility] morphine Allergy (Unknown, Verified 09/02/16 12:15) See Comments UNSURE OF REACTION- LISTED ON [facility] NSAIDS (Non-Steroidal Anti-Inflamma Allergy (Unknown, Verified 09/02/16 12:15) See Comments UNSURE OF REACTION- LISTED ON [facility]ICATION [facility] Procedures/tests Complete & Pending: Procedures Performed prior 72 hours Category Date Time Status NM hepatobiliary w drug [NM] Routine Exams 09/02/16 10:00 Completed MRCP [MR abdomen wo con] [MR] Stat MRI 09/02/16 02:58 Completed EV echocardiogram Stat Y 09/02/16 06:20 Completed Date of admission: 09/02/16 01:11 Primary care physician: PCP NIKI Consults: 09/02/16 05:34 Consult to Nurse Navigator [CONS] Routine Comment: 09/02/16 08:00 Consult to Gastroenterology [CONS] Routine Consulting Provider: Conrad Saul Reason for Consult: One-month history of abdominal pain with nausea vomiting and watery diarrhea with postprandial worsening of symptoms symptoms. Please evaluate and advise. Time Notified: 03:05 Call Completed: No Discharging clinician: Indira Patterson Anticipated date of discharge: 09/03/16 - Patient Status Disposition: Home, Self-Care Condition: Good Functional capacity at discharge: independent ambulation Overall status at discharge: patient is back to baseline - Discharge Instructions Instructions: Gastroenteritis (DC) Follow Up With: [facility] [Primary Care Provider] - (In 1-2 weeks) - Diet and Activity Activity: increase activity as tolerated Diet: advance to your usual diet Hospital course: Mr. Choudhary is a 55 year old male with history of anxiety disorder, gastroesophageal reflux disease, irritable bowel syndrome esophageal stricture who presented to the ER with complaints of nausea and vomiting and abdominal pain. A CT scan of the abdomen and pelvis did not show any acute abnormalities. Patient was admitted to the hospital and given his leukocytosis and was treated with IV antibiotics. He has not had any diarrhea here. No stool studies have been able to be obtained. Given the presenting symptom for the patient, patient also underwent MRCP and HIDA scan. Patient did not have any findings consistent with cholecystitis. He does have some cholelithiasis. With normal gallbladder ejection fraction. Patient did not have any abnormalities in his liver enzymes. At this time, the patient is feeling much better, he is tolerating liquid diet well and is being advanced to soft diet. He will be discharged home if he tolerates soft diet. Leukocytosis has resolved quickly. He does not appear to be having infectious gastroenteritis. He does not need any further antibiotics. - Time Spent with Patient Total time spent providing and/or coordinating discharge services: Less than 30 minutes (25 min) - Constitutional Vitals: Temp Pulse Resp BP Pulse Ox 98.2 F 64 20 143/90 96 09/03/16 10:32 09/03/16 10:32 09/03/16 10:48 09/03/16 10:32 09/03/16 10:48 General appearance: Present: disheveled, mild distress, A&O X 3, morbidly obese , answers questions appropriately - Neck Neck exam general surgery: Present: supple, trachea midline. Absent: lymphadenopathy - Respiratory Respiratory exam: Present: CTAB. Absent: accessory muscle use, rales, rhonchi, wheezes - Cardiovascular Cardiovascular exam: Present: RRR, +S1, +S2. Absent: diastolic murmur, gallop, rubs, systolic murmur - GI/Abdominal GI/Abdominal exam: Present: normal bowel sounds, soft, no peritoneal signs. Absent: distended, tenderness - Attending Attestation This document has been at least partially created by [employer] recognition technology by Dr. Patterson. Errors in grammar, wording or other phrases may exist. If errors are found after the documentation is signed, they will be addressed individually in the addendum section of this document when appropriate.
[2016-09-03] MEDS ORDERED: FLU VACC QS2016-17 36MOS UP/PF 0.5 ML SYRINGE IM ONE (13:07)
--- NOTE | 2016-09-04 12:16 | Electrocardiograph Report ---
[facility] Test Date: 2016-09-01 Pat Name: Leandro Choudhary Department: 103 Room: 3A41 Gender: M Director Television News: [facility] : 1960 Requested By: David Morrow Order Number: [id number] Reading MD: Jaiden Montelongo DO Measurements Intervals [place] Rate: 101 P: 48 PA: 149 QRS: -56 QRSD: 77 T: 9 QT: 313 QTc: 371 Interpretive Statements Sinus tachycardia Inferior myocardial infarction, age undetermined Electronically Signed On 09-04-16 12:15:26 EST by Jaiden Montelongo DO
[2016-09-05 21:05] LABS: Urine Collection Duration RANDOM hr; Urine Collection Volume RANDOM mL
[2016-09-06 07:55] LABS: C-Peptide 4.3 ng/mL (0.8-3.5)
== END 2016-09-03 13:58 | disposition home or self-care (01) | DRG 392 ==
LOC: EMEROO 20:28 → 3ANU 09-02 01:11
PROVIDERS: ADMIT Internal Medicine; ATTEND Internal Medicine